=== PATIENT | male | born 1940 | race Caucasian/White ===

== ENCOUNTER 2021-11-04 07:53 | Inpatient (IN) | payer MEDICARE, MEDICAID ==
[~2021-11-04] VITALS: Ht 185.4 cm; Wt 68.9 kg
[2021-11-04 09:30] VITALS: BP 104/69
[2021-11-04] MEDS ORDERED: magnesium 2GM in 50ml NS 50 ML IV PRN (10:45)
[2021-11-04] MEDS ORDERED: potassium CL 10mEq/100ml bag 100 ML IV PRN (10:45)
[2021-11-04] MEDS ORDERED: morphine 2 MG/ML inj. syringe IV PRN (10:45)
[2021-11-04] MEDS ORDERED: magnesium 4gm in 100ml NS 100 ML IV PRN (10:45)
[2021-11-04] MEDS ORDERED: potassium Cl 20 mEq SR tablet PO PRN (10:45)
[2021-11-04] MEDS ORDERED: mag hydrox/Alum hydrox/simeth 30ml oral suspension PO PRN (10:45)
[2021-11-04] MEDS ORDERED: magnesium hydroxide 30ml (MOM) UD suspension PO PRN (10:45)
[2021-11-04] MEDS ORDERED: ondansetron/PF 4mg/2ml inj IV PRN (10:45)
[2021-11-04] MEDS ORDERED: magnesium Cl slow-release 64mg tablet PO PRN (10:45)
[2021-11-04] MEDS ORDERED: acetaminophen 325mg tablet PO PRN ×2 (10:45)
[2021-11-04 11:00] VITALS: BP 100/61
[2021-11-04] MEDS: dextrose 5%-1/2 normal saline 1,000 ML IV SCH ×2 (11:15→20:04)
[2021-11-04 12:03] LABS: BASOPHILS # (AUTO) 0.1 X10'3 (0-0.2); BASOPHILS % (AUTO) 0.7 % (0-1); EOSINOPHILS % (AUTO) 0 % (0-6); HEMATOCRIT 41.3 % (42.0-52.0); HEMOGLOBIN 13.7 g/dl (14.0-17.9); LYMPHOCYTES # (AUTO) 0.3 X10'3 (1.1-4.8); LYMPHOCYTES % (AUTO) 1.5 % (21-51); MEAN CORPUSCULAR HEMOGLOBIN 31.4 PG (27.0-31.0); MEAN CORPUSCULAR HGB CONC 33.1 g/dL (33.0-36.5); MEAN CORPUSCULAR VOLUME 94.9 FL (78-98); MEAN PLATELET VOLUME 8.7 FL (7.4-10.4); MONOCYTES # (AUTO) 0.8 X10'3 (0-0.9); NEUTROPHILS # (AUTO) 18.3 X10'3 (1.8-7.7); NEUTROPHILS % (AUTO) 93.8 % (42-75); PLATELET COUNT 165 X10'3 (140-440); RED BLOOD COUNT 4.35 X10'6 (4.70-6.10); RED CELL DISTRIBUTION WIDTH 16.3 % (11.5-14.5); WHITE BLOOD COUNT 19.6 X10'3 (4.5-11.0)
[2021-11-04 12:07] LABS: CLARITY,URINE CLOUDY (Clear); COLOR,URINE YELLOW (Yellow); GLUCOSE, URINE NEGATIVE (Neg); KETONES,URINE NEGATIVE (Neg); LEUKOCYTE ESTERASE ,URINE LARGE (Neg); NITRITES, URINE NEGATIVE (Neg); OCCULT BLOOD,URINE LARGE (Neg); PROTEIN,URINE NEGATIVE (Neg); UROBILINOGEN,URINE 0.2 E.U/dL (0.2-1.0)
[2021-11-04 12:08] LABS: UA COLLECTION TYPE FOLEY CATH
[2021-11-04] MEDS: CefTRIAXone 2gm/D5W 50ml BAG 50 ML IV SCH (12:17)
[2021-11-04 12:20] LABS: BACTERIA,URINE 2+ /HPF (Neg); SQUAMOUS EPITHELIAL CELL,UR FEW /LPF (FEW); WBC CLUMPS,URINE MANY /HPF (NEGATIVE); WBC,URINE TNTC /HPF (0-4)
[2021-11-04 12:28] LABS: ALANINE AMINOTRANSFERASE 45 U/L (12-78); ALBUMIN/GLOBULIN RATIO 0.5 (1.1-1.5); ALKALINE PHOSPHATASE 71 IU/L (46-116); ANION GAP 13 (8-16); ASPARTATE AMINO TRANSFERASE 32 U/L (10-37); BILIRUBIN,TOTAL 1.3 MG/DL (0.1-1.0); BLOOD UREA NITROGEN 96 MG/DL (7-18); BUN/CREATININE RATIO 34.5 (5.4-32.0); CHLORIDE 122 MMOL/L (99-107); CREATININE 2.78 MG/DL (0.60-1.10); GLUCOSE 107 MG/DL (70-104); POTASSIUM 3.7 MMOL/L (3.5-5.1); TOTAL CARBON DIOXIDE 22.5 MMOL/L (24-32); eGFR 22 ML/MIN
[2021-11-04 12:46] LABS: SODIUM 157 MMOL/L (135-145)
--- NOTE | 2021-11-04 12:50 | NUR ---
PAGER ID: [phone] MESSAGE: [id number] ANA. [phone], TIFFANY DARLING
[2021-11-04] MEDS ORDERED: UNABLE TO OBTAIN (13:37)
[2021-11-04 15:00] VITALS: BP 128/64
--- NOTE | 2021-11-04 15:19 | NUR ---
PAGER ID: [phone] MESSAGE: [id number] Dean Soni- Patient had large watery bowel movement. Nga [id number]
--- NOTE | 2021-11-04 17:41 | NUR ---
Vik Soni called. States he doesn't know any of his medical history besides his chronic finn catheter. He doesn't believe he is on any medications.
--- NOTE | 2021-11-04 18:38 | NUR ---
Problems reprioritized. Patient report given, questions answered & plan of care reviewed with Mildred CARSON.
[2021-11-04] MEDS: K and/or MAG REPLACEMENT MC SCH (19:58)
[2021-11-04 20:00] VITALS: BP 93/60
[2021-11-04] MEDS: docusate sod 100mg capsule PO SCH (20:04)
[2021-11-04] MEDS: heparin, porcine 5000 units/ml vial SQ SCH (20:04)
[2021-11-04] MEDS: vancomycin 125mg/5ml ORAL solution 5ml UD oral syringe PO SCH (20:04)
[2021-11-04 23:00] VITALS: BP 103/52
[2021-11-05] MEDS: vancomycin 125mg/5ml ORAL solution 5ml UD oral syringe PO SCH ×2 (02:23→09:30)
[2021-11-05 03:00] VITALS: BP 98/65
[2021-11-05] MEDS: dextrose 5%-1/2 normal saline 1,000 ML IV SCH ×4 (05:03→23:07)
[2021-11-05 06:00] VITALS: BP 94/49
[2021-11-05 07:14] LABS: MEAN PLATELET VOLUME 9.1 FL (7.4-10.4)
[2021-11-05 07:16] LABS: HEMATOCRIT 41.5 % (42.0-52.0); HEMOGLOBIN 13.9 g/dl (14.0-17.9); MEAN CORPUSCULAR HGB CONC 33.5 g/dL (33.0-36.5); MEAN CORPUSCULAR VOLUME 95.7 FL (78-98); PLATELET COUNT 158 X10'3 (140-440); RED BLOOD COUNT 4.34 X10'6 (4.70-6.10); RED CELL DISTRIBUTION WIDTH 16.1 % (11.5-14.5); WHITE BLOOD COUNT 22.5 X10'3 (4.5-11.0)
[2021-11-05 07:22] LABS: ALANINE AMINOTRANSFERASE 36 U/L (12-78); ALBUMIN/GLOBULIN RATIO 0.5 (1.1-1.5); ALKALINE PHOSPHATASE 78 IU/L (46-116); ANION GAP 11 (8-16); ASPARTATE AMINO TRANSFERASE 24 U/L (10-37); BLOOD UREA NITROGEN 72 MG/DL (7-18); BUN/CREATININE RATIO 29.6 (5.4-32.0); CALCIUM 7.9 MG/DL (8.5-10.1); CHLORIDE 117 MMOL/L (99-107); CREATININE 2.43 MG/DL (0.60-1.10); GLUCOSE 91 MG/DL (70-104); POTASSIUM 3.3 MMOL/L (3.5-5.1); SODIUM 151 MMOL/L (135-145); TOTAL CARBON DIOXIDE 23.5 MMOL/L (24-32); TOTAL PROTEIN 6.2 G/DL (6.4-8.2); eGFR 26 ML/MIN
[2021-11-05 07:57] LABS: PLATELET ESTIMATE NORMAL; TOTAL CELLS COUNTED 100
[2021-11-05 07:58] LABS: ANISOCYTOSIS 1+
[2021-11-05] MEDS: docusate sod 100mg capsule PO SCH (08:00)
[2021-11-05] MEDS: K and/or MAG REPLACEMENT MC SCH ×2 (08:00→20:57)
[2021-11-05] MEDS: heparin, porcine 5000 units/ml vial SQ SCH ×2 (08:41→21:04)
[2021-11-05] MEDS: CefTRIAXone 2gm/D5W 50ml BAG 50 ML IV SCH (08:41)
[2021-11-05] MEDS: levoTHYROXINE 100mcg tablet PO SCH (08:41)
[2021-11-05] MEDS: potassium Cl 20 mEq SR tablet PO PRN ×2 (08:50→13:55)
[2021-11-05 10:09] LABS: C DIFF SPECIMEN=DIARRHEA? ACCEPTABLE; C DIFFICILE TOXINS A&B NEGATIVE (Neg)
[2021-11-05 11:00] VITALS: BP 91/47
--- NOTE | 2021-11-05 12:48 | NUR ---
PAGER ID: [phone] MESSAGE: [id number] Dean Soni- BP (MAP 58). Nga [id number]
[2021-11-05] MEDS: vancomycin inj 500 MG in normal saline 100ml IV soln 100 ML IV SCH (13:50)
[2021-11-05 15:00] VITALS: BP 107/44
[2021-11-05 16:29] LABS: BASOPHILS % (AUTO) 0.2 % (0-1); EOSINOPHILS % (AUTO) 0.1 % (0-6); HEMATOCRIT 41.5 % (42.0-52.0); HEMOGLOBIN 13.4 g/dl (14.0-17.9); LYMPHOCYTES # (AUTO) 0.7 X10'3 (1.1-4.8); LYMPHOCYTES % (AUTO) 3.2 % (21-51); MEAN CORPUSCULAR HEMOGLOBIN 31.4 PG (27.0-31.0); MEAN CORPUSCULAR HGB CONC 32.4 g/dL (33.0-36.5); MEAN CORPUSCULAR VOLUME 96.7 FL (78-98); MEAN PLATELET VOLUME 9.2 FL (7.4-10.4); MONOCYTES # (AUTO) 0.8 X10'3 (0-0.9); MONOCYTES % (AUTO) 3.5 % (2-12); NEUTROPHILS # (AUTO) 20.3 X10'3 (1.8-7.7); PLATELET COUNT 124 X10'3 (140-440); RED BLOOD COUNT 4.29 X10'6 (4.70-6.10); RED CELL DISTRIBUTION WIDTH 16.2 % (11.5-14.5); WHITE BLOOD COUNT 21.8 X10'3 (4.5-11.0)
--- NOTE | 2021-11-05 17:59 | NUR ---
Initial: Pt found down at home without power and water admit DX sepsis likely urinary source, INEZ, hypernatremia, and AMS per EMR. Serum Na 151mmol/L down from 157mmol/L on admit receiving D5/NS at 125ml/hr providing 510 kcals/day per EMR. Pt remains confused AOx1 though PO 75-100% majority of heart healthy meals so far this admit meeting minimum estimated nutrient needs. LBM 11/04 diarrhea per EMR. Will continue to monitor for further nutrition intervention needs this admit. Rec: 1. continue heart healthy diet per MD; consider liberalizing to regular once hypernatremia resolves given age per physician discretion 2. monitor PO trends for additional protein/kcal needs 3. bowel care per rx 4. weekly wts Addendum: 11/05/21 at [address] Amended: Links added.
[2021-11-05 18:00] VITALS: BP 103/56
--- NOTE | 2021-11-05 18:38 | NUR ---
Problems reprioritized. Patient report given, questions answered & plan of care reviewed with Tracie CARSON.
[2021-11-05] MEDS: lactobacillus rhamnosus 10,000 MMU CELLS/CAPSULE PO SCH (20:00)
[2021-11-05 22:00] VITALS: BP 110/61
[2021-11-06 02:00] VITALS: BP 127/67
[2021-11-06 06:00] VITALS: BP 124/64
--- NOTE | 2021-11-06 06:29 | NUR ---
Problems reprioritized. Patient report given, questions answered & plan of care reviewed with Valorie.
--- NOTE | 2021-11-06 06:30 | NUR ---
Patient in room PCU 3023. I have received report from Tracie CARSON and had the opportunity to ask questions and assume patient care.
[2021-11-06 06:57] LABS: BASOPHILS % (AUTO) 0.1 % (0-1); EOSINOPHILS # (AUTO) 0.1 X10'3 (0-0.9); EOSINOPHILS % (AUTO) 0.7 % (0-6); HEMATOCRIT 39.3 % (42.0-52.0); HEMOGLOBIN 12.9 g/dl (14.0-17.9); LYMPHOCYTES # (AUTO) 0.6 X10'3 (1.1-4.8); MEAN CORPUSCULAR HEMOGLOBIN 31.3 PG (27.0-31.0); MEAN CORPUSCULAR HGB CONC 32.8 g/dL (33.0-36.5); MEAN CORPUSCULAR VOLUME 95.5 FL (78-98); MEAN PLATELET VOLUME 9.2 FL (7.4-10.4); MONOCYTES # (AUTO) 0.5 X10'3 (0-0.9); MONOCYTES % (AUTO) 3.2 % (2-12); NEUTROPHILS # (AUTO) 14.1 X10'3 (1.8-7.7); PLATELET COUNT 151 X10'3 (140-440); RED BLOOD COUNT 4.12 X10'6 (4.70-6.10); WHITE BLOOD COUNT 15.3 X10'3 (4.5-11.0)
[2021-11-06 07:27] LABS: ALANINE AMINOTRANSFERASE 23 U/L (12-78); ALBUMIN 1.8 G/DL (3.4-5.0); ALBUMIN/GLOBULIN RATIO 0.5 (1.1-1.5); ALKALINE PHOSPHATASE 64 IU/L (46-116); ANION GAP 8 (8-16); ASPARTATE AMINO TRANSFERASE 19 U/L (10-37); BILIRUBIN,TOTAL 0.6 MG/DL (0.1-1.0); BLOOD UREA NITROGEN 51 MG/DL (7-18); BUN/CREATININE RATIO 27.1 (5.4-32.0); CALCIUM 7.8 MG/DL (8.5-10.1); CHLORIDE 116 MMOL/L (99-107); CREATININE 1.88 MG/DL (0.60-1.10); GLUCOSE 118 MG/DL (70-104); POTASSIUM 3.6 MMOL/L (3.5-5.1); SODIUM 148 MMOL/L (135-145); TOTAL CARBON DIOXIDE 24.3 MMOL/L (24-32); TOTAL PROTEIN 5.7 G/DL (6.4-8.2); eGFR 35 ML/MIN
[2021-11-06] MEDS: K and/or MAG REPLACEMENT MC SCH ×2 (08:00→20:00)
[2021-11-06] MEDS: CefTRIAXone 2gm/D5W 50ml BAG 50 ML IV SCH (09:51)
[2021-11-06] MEDS: levoTHYROXINE 100mcg tablet PO SCH (09:52)
[2021-11-06] MEDS: lactobacillus rhamnosus 10,000 MMU CELLS/CAPSULE PO SCH ×2 (09:52→20:17)
[2021-11-06] MEDS: heparin, porcine 5000 units/ml vial SQ SCH ×2 (09:53→20:16)
[2021-11-06] MEDS: dextrose 5%-1/2 normal saline 1,000 ML IV SCH ×2 (09:53→20:14)
[2021-11-06 11:00] VITALS: BP 115/57
[2021-11-06] MEDS: vancomycin inj 500 MG in normal saline 100ml IV soln 100 ML IV SCH (13:23)
[2021-11-06 15:00] VITALS: BP 113/57
[2021-11-06 18:00] VITALS: BP 124/60
--- NOTE | 2021-11-06 18:41 | NUR ---
Problems reprioritized. Patient report given, questions answered & plan of care reviewed with Tracie RN, patient stable at transfer of care.
[2021-11-07 02:00] VITALS: BP 122/65
[2021-11-07] MEDS: dextrose 5%-1/2 normal saline 1,000 ML IV SCH ×3 (03:34→19:48)
[2021-11-07 06:00] VITALS: BP 130/69
--- NOTE | 2021-11-07 06:44 | NUR ---
Problems reprioritized. Patient report given, questions answered & plan of care reviewed with Chadd.
[2021-11-07 07:09] LABS: BASOPHILS % (AUTO) 0.1 % (0-1); EOSINOPHILS # (AUTO) 0.1 X10'3 (0-0.9); EOSINOPHILS % (AUTO) 0.9 % (0-6); HEMATOCRIT 35.9 % (42.0-52.0); LYMPHOCYTES # (AUTO) 0.8 X10'3 (1.1-4.8); LYMPHOCYTES % (AUTO) 6.3 % (21-51); MEAN CORPUSCULAR HEMOGLOBIN 31.7 PG (27.0-31.0); MEAN CORPUSCULAR HGB CONC 33.6 g/dL (33.0-36.5); MEAN CORPUSCULAR VOLUME 94.5 FL (78-98); MEAN PLATELET VOLUME 8.8 FL (7.4-10.4); MONOCYTES # (AUTO) 0.5 X10'3 (0-0.9); MONOCYTES % (AUTO) 3.7 % (2-12); NEUTROPHILS # (AUTO) 11.5 X10'3 (1.8-7.7); PLATELET COUNT 173 X10'3 (140-440); RED BLOOD COUNT 3.79 X10'6 (4.70-6.10); RED CELL DISTRIBUTION WIDTH 15.3 % (11.5-14.5)
[2021-11-07 07:28] LABS: ALANINE AMINOTRANSFERASE 24 U/L (12-78); ALBUMIN 1.7 G/DL (3.4-5.0); ALBUMIN/GLOBULIN RATIO 0.4 (1.1-1.5); ALKALINE PHOSPHATASE 68 IU/L (46-116); ANION GAP 10 (8-16); ASPARTATE AMINO TRANSFERASE 25 U/L (10-37); BILIRUBIN,TOTAL 0.5 MG/DL (0.1-1.0); BLOOD UREA NITROGEN 34 MG/DL (7-18); BUN/CREATININE RATIO 21.7 (5.4-32.0); CALCIUM 7.7 MG/DL (8.5-10.1); CHLORIDE 114 MMOL/L (99-107); CREATININE 1.57 MG/DL (0.60-1.10); GLUCOSE 114 MG/DL (70-104); POTASSIUM 3.4 MMOL/L (3.5-5.1); SODIUM 146 MMOL/L (135-145); TOTAL CARBON DIOXIDE 21.9 MMOL/L (24-32); TOTAL PROTEIN 5.6 G/DL (6.4-8.2); eGFR 43 ML/MIN
[2021-11-07] MEDS: K and/or MAG REPLACEMENT MC SCH ×2 (08:00→20:00)
[2021-11-07] MEDS: levoTHYROXINE 100mcg tablet PO SCH (08:35)
[2021-11-07] MEDS: lactobacillus rhamnosus 10,000 MMU CELLS/CAPSULE PO SCH ×2 (08:35→19:26)
[2021-11-07] MEDS: CefTRIAXone 2gm/D5W 50ml BAG 50 ML IV SCH (08:36)
[2021-11-07] MEDS: heparin, porcine 5000 units/ml vial SQ SCH ×2 (08:38→19:26)
[2021-11-07 09:27] LABS: PLATELET ESTIMATE NORMAL; TOTAL CELLS COUNTED 100; TOXIC GRANULATION 1+
[2021-11-07] MEDS: potassium Cl 20 mEq SR tablet PO PRN (09:27)
[2021-11-07 09:29] LABS: ANISOCYTOSIS FEW; ELLIPTOCYTES FEW; POLYCHROMASIA FEW
[2021-11-07 11:00] VITALS: BP 132/67
[2021-11-07 15:00] VITALS: BP 117/64
[2021-11-07] MEDS: vancomycin inj 500 MG in normal saline 100ml IV soln 100 ML IV SCH (16:18)
[2021-11-07] MEDS: potassium Cl 20 mEq SR tablet PO SCH ×2 (16:18→19:26)
[2021-11-07 18:00] VITALS: BP 131/70
[2021-11-07] MEDS: HYDROcodone/acetaminophen 5mg/325mg tablet PO PRN (19:26)
[2021-11-07 22:00] VITALS: BP 115/58
[2021-11-08 02:00] VITALS: BP 121/63
[2021-11-08] MEDS: dextrose 5%-1/2 normal saline 1,000 ML IV SCH ×2 (05:49→15:48)
[2021-11-08 06:00] VITALS: BP 131/62
[2021-11-08 06:19] LABS: BASOPHILS % (AUTO) 0.1 % (0-1); EOSINOPHILS # (AUTO) 0.1 X10'3 (0-0.9); EOSINOPHILS % (AUTO) 1.1 % (0-6); HEMATOCRIT 36.4 % (42.0-52.0); HEMOGLOBIN 12.1 g/dl (14.0-17.9); LYMPHOCYTES # (AUTO) 0.7 X10'3 (1.1-4.8); LYMPHOCYTES % (AUTO) 5.3 % (21-51); MEAN CORPUSCULAR HEMOGLOBIN 31.7 PG (27.0-31.0); MEAN CORPUSCULAR HGB CONC 33.1 g/dL (33.0-36.5); MEAN CORPUSCULAR VOLUME 95.9 FL (78-98); MONOCYTES # (AUTO) 0.7 X10'3 (0-0.9); MONOCYTES % (AUTO) 5.1 % (2-12); NEUTROPHILS # (AUTO) 12.1 X10'3 (1.8-7.7); NEUTROPHILS % (AUTO) 88.4 % (42-75); PLATELET COUNT 195 X10'3 (140-440); RED CELL DISTRIBUTION WIDTH 15.2 % (11.5-14.5); WHITE BLOOD COUNT 13.7 X10'3 (4.5-11.0)
[2021-11-08 06:36] LABS: ALANINE AMINOTRANSFERASE 45 U/L (12-78); ALBUMIN 1.7 G/DL (3.4-5.0); ALBUMIN/GLOBULIN RATIO 0.4 (1.1-1.5); ALKALINE PHOSPHATASE 75 IU/L (46-116); ANION GAP 9 (8-16); ASPARTATE AMINO TRANSFERASE 46 U/L (10-37); BILIRUBIN,TOTAL 0.5 MG/DL (0.1-1.0); BLOOD UREA NITROGEN 32 MG/DL (7-18); BUN/CREATININE RATIO 20.4 (5.4-32.0); CALCIUM 7.6 MG/DL (8.5-10.1); CHLORIDE 112 MMOL/L (99-107); CREATININE 1.57 MG/DL (0.60-1.10); GLUCOSE 99 MG/DL (70-104); POTASSIUM 3.9 MMOL/L (3.5-5.1); SODIUM 144 MMOL/L (135-145); TOTAL CARBON DIOXIDE 23.1 MMOL/L (24-32); TOTAL PROTEIN 5.6 G/DL (6.4-8.2); eGFR 43 ML/MIN
--- NOTE | 2021-11-08 07:11 | NUR ---
Problems reprioritized. Patient report given, questions answered & plan of care reviewed with Yuniel CARSON .
[2021-11-08] MEDS: K and/or MAG REPLACEMENT MC SCH ×2 (08:00→19:43)
[2021-11-08] MEDS: lactobacillus rhamnosus 10,000 MMU CELLS/CAPSULE PO SCH ×2 (09:18→21:25)
[2021-11-08] MEDS: levoTHYROXINE 125mcg tablet PO SCH (09:18)
[2021-11-08] MEDS: CefTRIAXone 2gm/D5W 50ml BAG 50 ML IV SCH (09:19)
[2021-11-08] MEDS: heparin, porcine 5000 units/ml vial SQ SCH ×2 (09:19→21:26)
[2021-11-08 09:55] LABS: TOTAL CELLS COUNTED 100
[2021-11-08 09:56] LABS: ANISOCYTOSIS FEW; ELLIPTOCYTES FEW; HYPERSEGMENTED NEUTROPHILS FEW; LARGE PLATELETS FEW; PLATELET ESTIMATE NORMAL; POLYCHROMASIA FEW; TOXIC GRANULATION 1+
[2021-11-08 11:00] VITALS: BP 128/76
[2021-11-08] MEDS ORDERED: VANCOMYCIN LEVEL IV ONE (12:30)
[2021-11-08 15:00] VITALS: BP 115/56
[2021-11-08 18:00] VITALS: BP 129/73
--- NOTE | 2021-11-08 23:22 | NUR ---
Delarosa catheter d/c'd today at 1500. Pt has not voided up to this time. Stood up at the bedside and encouraged him to use the urinal with no results. Bladder scan shows > 437ml. Dr. Vásquez notified, orders given to straight cath Addendum: 11/09/21 at 0043 by Cherelle Ruffin RN Straight cath with 1100 ml urine return Addendum: 11/09/21 at 0508 by Cherelle Ruffin RN No further voiding up to this time. He did report mild suprapubic tenderness on rounds at 0400 (states he has an old hernia in that area). Currently he is resting. IV fluids reduced to KVO until can verify with MD in the am if to continue the rate at 100ml/hr if not voiding.
[2021-11-08] MEDS ORDERED: LIDOcaine 2% 10ml TOPICAL JELLY (Urojet) MM ONE (23:45)
[2021-11-09] MEDS: dextrose 5%-1/2 normal saline 1,000 ML IV SCH ×3 (01:48→21:09)
[2021-11-09 02:00] VITALS: BP 125/74
--- NOTE | 2021-11-09 06:29 | NUR ---
Patient in room PCU 3023. I have received report from Cherelle CARSON and had the opportunity to ask questions and assume patient care.
--- NOTE | 2021-11-09 06:33 | NUR ---
Change of shift report given to YAMILETH Willis Addendum: 11/09/21 at 0633 by Cherelle Ruffin RN Amended: Links added.
[2021-11-09 06:49] LABS: BASOPHILS % (AUTO) 0.1 % (0-1); EOSINOPHILS # (AUTO) 0.1 X10'3 (0-0.9); EOSINOPHILS % (AUTO) 0.2 % (0-6); HEMATOCRIT 38.2 % (42.0-52.0); HEMOGLOBIN 12.7 g/dl (14.0-17.9); LYMPHOCYTES # (AUTO) 0.8 X10'3 (1.1-4.8); LYMPHOCYTES % (AUTO) 3.1 % (21-51); MEAN CORPUSCULAR HEMOGLOBIN 31.5 PG (27.0-31.0); MEAN CORPUSCULAR HGB CONC 33.2 g/dL (33.0-36.5); MEAN CORPUSCULAR VOLUME 94.8 FL (78-98); MONOCYTES # (AUTO) 0.9 X10'3 (0-0.9); MONOCYTES % (AUTO) 3.4 % (2-12); NEUTROPHILS # (AUTO) 25.1 X10'3 (1.8-7.7); NEUTROPHILS % (AUTO) 93.2 % (42-75); PLATELET COUNT 218 X10'3 (140-440); RED BLOOD COUNT 4.03 X10'6 (4.70-6.10); RED CELL DISTRIBUTION WIDTH 15.3 % (11.5-14.5)
[2021-11-09 07:01] VITALS: BP 88/64
[2021-11-09 07:13] LABS: ALANINE AMINOTRANSFERASE 53 U/L (12-78); ALBUMIN 1.8 G/DL (3.4-5.0); ALBUMIN/GLOBULIN RATIO 0.5 (1.1-1.5); ALKALINE PHOSPHATASE 70 IU/L (46-116); ANION GAP 9 (8-16); ASPARTATE AMINO TRANSFERASE 40 U/L (10-37); BILIRUBIN,TOTAL 0.7 MG/DL (0.1-1.0); BLOOD UREA NITROGEN 36 MG/DL (7-18); BUN/CREATININE RATIO 14.7 (5.4-32.0); CALCIUM 7.8 MG/DL (8.5-10.1); CHLORIDE 112 MMOL/L (99-107); CREATININE 2.45 MG/DL (0.60-1.10); GLUCOSE 101 MG/DL (70-104); POTASSIUM 3.9 MMOL/L (3.5-5.1); SODIUM 141 MMOL/L (135-145); TOTAL CARBON DIOXIDE 19.8 MMOL/L (24-32); TOTAL PROTEIN 5.8 G/DL (6.4-8.2); eGFR 25 ML/MIN
--- NOTE | 2021-11-09 07:15 | NUR ---
PAGER ID: [phone] MESSAGE: Lazaro tele [id number] re: Rafa Soni Patient has a critical WBC today of 27k thanks Lazaro.
[2021-11-09] MEDS: lactobacillus rhamnosus 10,000 MMU CELLS/CAPSULE PO SCH ×2 (07:41→21:08)
[2021-11-09] MEDS: levoTHYROXINE 125mcg tablet PO SCH (07:41)
[2021-11-09] MEDS: CefTRIAXone 2gm/D5W 50ml BAG 50 ML IV SCH (07:41)
[2021-11-09] MEDS: heparin, porcine 5000 units/ml vial SQ SCH ×2 (07:49→21:08)
[2021-11-09] MEDS: K and/or MAG REPLACEMENT MC SCH ×2 (08:00→20:00)
[2021-11-09 08:27] LABS: PLATELET ESTIMATE NORMAL; TOTAL CELLS COUNTED 100
[2021-11-09 10:12] LABS: BASOPHILS % (AUTO) 0.1 % (0-1); EOSINOPHILS % (AUTO) 0.1 % (0-6); HEMATOCRIT 37.6 % (42.0-52.0); HEMOGLOBIN 12.4 g/dl (14.0-17.9); LYMPHOCYTES # (AUTO) 0.7 X10'3 (1.1-4.8); LYMPHOCYTES % (AUTO) 2.6 % (21-51); MEAN CORPUSCULAR HEMOGLOBIN 31.2 PG (27.0-31.0); MEAN CORPUSCULAR HGB CONC 33.1 g/dL (33.0-36.5); MEAN CORPUSCULAR VOLUME 94.5 FL (78-98); MEAN PLATELET VOLUME 9.2 FL (7.4-10.4); MONOCYTES # (AUTO) 1.2 X10'3 (0-0.9); MONOCYTES % (AUTO) 4.6 % (2-12); NEUTROPHILS # (AUTO) 24.6 X10'3 (1.8-7.7); NEUTROPHILS % (AUTO) 92.6 % (42-75); PLATELET COUNT 214 X10'3 (140-440); RED BLOOD COUNT 3.98 X10'6 (4.70-6.10); RED CELL DISTRIBUTION WIDTH 15.3 % (11.5-14.5)
[2021-11-09 10:20] LABS: WHITE BLOOD COUNT 26.6 X10'3 (4.5-11.0)
[2021-11-09] MEDS ORDERED: LIDOcaine 2% 10ml TOPICAL JELLY (Urojet) TP ONE (10:45)
[2021-11-09 11:34] VITALS: BP 105/55
--- NOTE | 2021-11-09 11:42 | NUR ---
Reassessment: Pt continues on Heart healthy diet w/ mostly 100% intake of meals meeting needs. Pt remains A&O x 1 and confused per physical assessment and requires minimal assistance w/ meals at times. Pt also receiving D5 1/2NS at 100ml/hr providing additional 408kcals per day. LBM 1/2. No change to recommendations at this time. [facility] continue to [facility]. Rec: 1. Liberalize to Regular diet if MD agreeable given no significant cardiac hx in EMR 2. monitor PO trends for additional protein/kcal needs 3. bowel care per rx 4. weekly wts Addendum: 11/09/21 at [address] Amended: Links added.
[2021-11-09 16:18] VITALS: BP 98/61
[2021-11-09 18:00] VITALS: BP 91/56
--- NOTE | 2021-11-09 18:23 | NUR ---
Problems reprioritized. Patient report given, questions answered & plan of care reviewed with Cherelle RN.
[2021-11-09] MEDS: tamsulosin 0.4mg capsule PO SCH (21:08)
[2021-11-09 22:00] VITALS: BP 101/56
[2021-11-10 02:00] VITALS: BP 107/56
--- NOTE | 2021-11-10 06:40 | NUR ---
Change of shift report given to YAMILETH Brewer Addendum: 11/10/21 at 0640 by Cherelle Ruffin RN Amended: Links added.
--- NOTE | 2021-11-10 06:46 | NUR ---
Patient in room PCU 3023. I have received report from MEME CARSON and had the opportunity to ask questions and assume patient care.
[2021-11-10 07:00] VITALS: BP 110/57
[2021-11-10 07:06] LABS: BASOPHILS % (AUTO) 0.2 % (0-1); EOSINOPHILS # (AUTO) 0.1 X10'3 (0-0.9); EOSINOPHILS % (AUTO) 0.6 % (0-6); HEMATOCRIT 33.2 % (42.0-52.0); HEMOGLOBIN 11.1 g/dl (14.0-17.9); LYMPHOCYTES # (AUTO) 0.8 X10'3 (1.1-4.8); LYMPHOCYTES % (AUTO) 4.7 % (21-51); MEAN CORPUSCULAR HEMOGLOBIN 31.7 PG (27.0-31.0); MEAN CORPUSCULAR HGB CONC 33.4 g/dL (33.0-36.5); MEAN PLATELET VOLUME 9.1 FL (7.4-10.4); MONOCYTES # (AUTO) 1.3 X10'3 (0-0.9); MONOCYTES % (AUTO) 7.5 % (2-12); NEUTROPHILS # (AUTO) 14.8 X10'3 (1.8-7.7); PLATELET COUNT 212 X10'3 (140-440); RED BLOOD COUNT 3.49 X10'6 (4.70-6.10); RED CELL DISTRIBUTION WIDTH 15.3 % (11.5-14.5)
[2021-11-10 07:35] LABS: ALANINE AMINOTRANSFERASE 39 U/L (12-78); ALBUMIN 1.6 G/DL (3.4-5.0); ALBUMIN/GLOBULIN RATIO 0.4 (1.1-1.5); ALKALINE PHOSPHATASE 70 IU/L (46-116); ANION GAP 10 (8-16); ASPARTATE AMINO TRANSFERASE 25 U/L (10-37); BILIRUBIN,TOTAL 0.5 MG/DL (0.1-1.0); BLOOD UREA NITROGEN 30 MG/DL (7-18); BUN/CREATININE RATIO 16.2 (5.4-32.0); CALCIUM 7.8 MG/DL (8.5-10.1); CHLORIDE 113 MMOL/L (99-107); CREATININE 1.85 MG/DL (0.60-1.10); GLUCOSE 92 MG/DL (70-104); POTASSIUM 3.7 MMOL/L (3.5-5.1); SODIUM 145 MMOL/L (135-145); TOTAL CARBON DIOXIDE 21.7 MMOL/L (24-32); TOTAL PROTEIN 5.7 G/DL (6.4-8.2); eGFR 35 ML/MIN
[2021-11-10] MEDS: dextrose 5%-1/2 normal saline 1,000 ML IV SCH ×2 (07:48→17:56)
[2021-11-10] MEDS: K and/or MAG REPLACEMENT MC SCH ×2 (08:00→20:00)
[2021-11-10 08:42] LABS: GIANT PLATELET FEW; PLATELET ESTIMATE NORMAL; TOTAL CELLS COUNTED 100
[2021-11-10] MEDS: CefTRIAXone 2gm/D5W 50ml BAG 50 ML IV SCH (09:04)
[2021-11-10] MEDS: levoTHYROXINE 125mcg tablet PO SCH (09:04)
[2021-11-10] MEDS: lactobacillus rhamnosus 10,000 MMU CELLS/CAPSULE PO SCH ×2 (09:04→20:09)
[2021-11-10] MEDS: heparin, porcine 5000 units/ml vial SQ SCH ×2 (09:05→20:10)
[2021-11-10 11:00] VITALS: BP 107/56
[2021-11-10 15:00] VITALS: BP 113/85
[2021-11-10 18:00] VITALS: BP 119/63
--- NOTE | 2021-11-10 18:41 | NUR ---
Problems reprioritized. Patient report given, questions answered & plan of care reviewed with REBEL CARSON.
--- NOTE | 2021-11-10 18:41 | NUR ---
Patient in room PCU 3023. I have received report from Daniella CARSON and had the opportunity to ask questions and assume patient care.
[2021-11-10] MEDS: tamsulosin 0.4mg capsule PO SCH (20:10)
[2021-11-10 22:00] VITALS: BP 107/57
[2021-11-11 02:00] VITALS: BP 108/70
[2021-11-11] MEDS: dextrose 5%-1/2 normal saline 1,000 ML IV SCH ×2 (04:56→14:36)
--- NOTE | 2021-11-11 06:43 | NUR ---
Problems reprioritized. Patient report given, questions answered & plan of care reviewed with Lynn CARSON.
[2021-11-11 06:44] LABS: BASOPHILS % (AUTO) 0.2 % (0-1); EOSINOPHILS # (AUTO) 0.1 X10'3 (0-0.9); HEMATOCRIT 32.7 % (42.0-52.0); HEMOGLOBIN 10.9 g/dl (14.0-17.9); LYMPHOCYTES # (AUTO) 0.9 X10'3 (1.1-4.8); LYMPHOCYTES % (AUTO) 6.7 % (21-51); MEAN CORPUSCULAR HEMOGLOBIN 31.6 PG (27.0-31.0); MEAN CORPUSCULAR HGB CONC 33.5 g/dL (33.0-36.5); MEAN CORPUSCULAR VOLUME 94.3 FL (78-98); MEAN PLATELET VOLUME 9.1 FL (7.4-10.4); MONOCYTES # (AUTO) 1.1 X10'3 (0-0.9); MONOCYTES % (AUTO) 7.8 % (2-12); NEUTROPHILS # (AUTO) 11.4 X10'3 (1.8-7.7); NEUTROPHILS % (AUTO) 84.3 % (42-75); PLATELET COUNT 261 X10'3 (140-440); RED BLOOD COUNT 3.46 X10'6 (4.70-6.10); RED CELL DISTRIBUTION WIDTH 15.4 % (11.5-14.5); WHITE BLOOD COUNT 13.5 X10'3 (4.5-11.0)
[2021-11-11 06:55] VITALS: BP 115/74
[2021-11-11 07:13] LABS: ALANINE AMINOTRANSFERASE 38 U/L (12-78); ALBUMIN 1.7 G/DL (3.4-5.0); ALBUMIN/GLOBULIN RATIO 0.4 (1.1-1.5); ALKALINE PHOSPHATASE 72 IU/L (46-116); ANION GAP 8 (8-16); ASPARTATE AMINO TRANSFERASE 26 U/L (10-37); BILIRUBIN,TOTAL 0.4 MG/DL (0.1-1.0); BLOOD UREA NITROGEN 26 MG/DL (7-18); BUN/CREATININE RATIO 16.6 (5.4-32.0); CALCIUM 7.7 MG/DL (8.5-10.1); CHLORIDE 111 MMOL/L (99-107); CREATININE 1.57 MG/DL (0.60-1.10); GLUCOSE 94 MG/DL (70-104); POTASSIUM 3.4 MMOL/L (3.5-5.1); SODIUM 142 MMOL/L (135-145); TOTAL CARBON DIOXIDE 22.7 MMOL/L (24-32); TOTAL PROTEIN 5.8 G/DL (6.4-8.2); eGFR 43 ML/MIN
[2021-11-11] MEDS: K and/or MAG REPLACEMENT MC SCH ×3 (08:00→20:00)
[2021-11-11] MEDS: lactobacillus rhamnosus 10,000 MMU CELLS/CAPSULE PO SCH ×2 (08:17→20:06)
[2021-11-11] MEDS: levoTHYROXINE 125mcg tablet PO SCH (08:18)
[2021-11-11] MEDS: CefTRIAXone 2gm/D5W 50ml BAG 50 ML IV SCH (08:18)
[2021-11-11] MEDS: heparin, porcine 5000 units/ml vial SQ SCH ×2 (08:18→20:06)
[2021-11-11 10:48] VITALS: BP 103/56
[2021-11-11] MEDS ORDERED: magnesium 2GM in 50ml NS 50 ML IV PRN (11:05)
[2021-11-11] MEDS ORDERED: potassium CL 10mEq/100ml bag 100 ML IV PRN (11:05)
[2021-11-11] MEDS ORDERED: magnesium Cl slow-release 64mg tablet PO PRN (11:05)
[2021-11-11] MEDS ORDERED: magnesium 4gm in 100ml NS 100 ML IV PRN (11:05)
[2021-11-11] MEDS ORDERED: potassium Cl 20 mEq SR tablet PO PRN (11:05)
[2021-11-11] MEDS: potassium Cl 20 mEq SR tablet PO PRN ×3 (12:00→20:06)
[2021-11-11 15:39] VITALS: BP 106/57
--- NOTE | 2021-11-11 16:07 | NUR ---
PATIENT PLEASANTLY CONFUSED, A&O TO SELF AND YEAR. PATIENT MOVES HIMSELF IN BED. PT HAD LG BM THIS AM. [facility] PROVIDED. PATIENT HAS EATEN 100% OF ALL MEALS TODAY. WILL CONTINUE TO MONITOR PATIENT.
[2021-11-11 18:00] VITALS: BP 119/67
--- NOTE | 2021-11-11 18:05 | NUR ---
Problems reprioritized. Patient report given, questions answered & plan of care reviewed with Peyton Mccarty.
--- NOTE | 2021-11-11 18:20 | NUR ---
Patient in room PCU 3023. I have received report from Lynn CARSON and had the opportunity to ask questions and assume patient care.
[2021-11-11] MEDS: tamsulosin 0.4mg capsule PO SCH (20:06)
[2021-11-11 22:00] VITALS: BP 116/62
[2021-11-12] MEDS: dextrose 5%-1/2 normal saline 1,000 ML IV SCH ×3 (00:38→10:58)
[2021-11-12 02:00] VITALS: BP 97/49
--- NOTE | 2021-11-12 05:59 | NUR ---
Problems reprioritized. Patient report given, questions answered & plan of care reviewed with Lynn CARSON.
[2021-11-12 06:00] VITALS: BP 96/55
[2021-11-12 06:26] LABS: EOSINOPHILS # (AUTO) 0.1 X10'3 (0-0.9); HEMOGLOBIN 11.2 g/dl (14.0-17.9); LYMPHOCYTES # (AUTO) 0.9 X10'3 (1.1-4.8)
[2021-11-12 06:29] LABS: BASOPHILS # (AUTO) 0.1 X10'3 (0-0.2); BASOPHILS % (AUTO) 0.6 % (0-1); LYMPHOCYTES % (AUTO) 6.9 % (21-51); MEAN CORPUSCULAR HEMOGLOBIN 31.9 PG (27.0-31.0); MEAN CORPUSCULAR HGB CONC 33.8 g/dL (33.0-36.5); MEAN CORPUSCULAR VOLUME 94.2 FL (78-98); MEAN PLATELET VOLUME 9.3 FL (7.4-10.4); MONOCYTES # (AUTO) 0.9 X10'3 (0-0.9); MONOCYTES % (AUTO) 6.5 % (2-12); NEUTROPHILS # (AUTO) 11.8 X10'3 (1.8-7.7); PLATELET COUNT 227 X10'3 (140-440); RED CELL DISTRIBUTION WIDTH 15.1 % (11.5-14.5); WHITE BLOOD COUNT 13.8 X10'3 (4.5-11.0)
[2021-11-12 07:05] LABS: ALANINE AMINOTRANSFERASE 43 U/L (12-78); ALBUMIN 1.8 G/DL (3.4-5.0); ALBUMIN/GLOBULIN RATIO 0.4 (1.1-1.5); ALKALINE PHOSPHATASE 77 IU/L (46-116); ANION GAP 10 (8-16); ASPARTATE AMINO TRANSFERASE 35 U/L (10-37); BILIRUBIN,TOTAL 0.5 MG/DL (0.1-1.0); BLOOD UREA NITROGEN 22 MG/DL (7-18); BUN/CREATININE RATIO 14.4 (5.4-32.0); CALCIUM 8.2 MG/DL (8.5-10.1); CHLORIDE 111 MMOL/L (99-107); CREATININE 1.53 MG/DL (0.60-1.10); GLUCOSE 108 MG/DL (70-104); MAGNESIUM 1.5 MG/DL (1.5-2.4); POTASSIUM 4.1 MMOL/L (3.5-5.1); SODIUM 142 MMOL/L (135-145); TOTAL CARBON DIOXIDE 20.9 MMOL/L (24-32); TOTAL PROTEIN 6.1 G/DL (6.4-8.2); eGFR 44 ML/MIN
[2021-11-12] MEDS: levoTHYROXINE 125mcg tablet PO SCH (07:23)
[2021-11-12] MEDS: lactobacillus rhamnosus 10,000 MMU CELLS/CAPSULE PO SCH ×2 (07:24→20:32)
[2021-11-12] MEDS: heparin, porcine 5000 units/ml vial SQ SCH ×2 (07:26→20:33)
[2021-11-12] MEDS: CefTRIAXone 2gm/D5W 50ml BAG 50 ML IV SCH (07:26)
[2021-11-12] MEDS: K and/or MAG REPLACEMENT MC SCH ×4 (07:34→20:00)
[2021-11-12 09:18] LABS: PLATELET ESTIMATE NORMAL; TOTAL CELLS COUNTED 100
[2021-11-12 11:21] VITALS: BP 104/59
[2021-11-12 15:00] VITALS: BP 110/55
--- NOTE | 2021-11-12 16:43 | NUR ---
PATIENT HAS BEEN VERY PLEASANT THIS SHIFT. PT HAS REFUSED REPOSITIONING MULTIPLE TIMES BY PRIMARY RN AND TECHS. PT STRONGLY ENCOURAGE TO REPOSITION AND NOT SIT IN SAME SPOT ON BUTTOCKS. PATIENT STATED " I USED TO FALL TIMBER I KNOW WHAT IM DOING". PT HAS EXCELLENT APPETITE, PT HAD MED BM AND 1900 URINE OUTPUT THIS SHIFT. WILL CONTINUE TO MONITOR PATIENT.
[2021-11-12 18:00] VITALS: BP 119/63
--- NOTE | 2021-11-12 18:10 | NUR ---
Problems reprioritized. Patient report given, questions answered & plan of care reviewed with emir field rn.
--- NOTE | 2021-11-12 18:30 | NUR ---
Patient in room PCU 3023. I have received report from KATY CARSON and had the opportunity to ask questions and assume patient care.
[2021-11-12] MEDS: tamsulosin 0.4mg capsule PO SCH (20:32)
[2021-11-12 22:00] VITALS: BP 141/65
[2021-11-13] MEDS: dextrose 5%-1/2 normal saline 1,000 ML IV SCH ×3 (00:48→21:12)
[2021-11-13 02:00] VITALS: BP 95/63
[2021-11-13 06:00] VITALS: BP 128/67
--- NOTE | 2021-11-13 06:06 | NUR ---
Problems reprioritized. Patient report given, questions answered & plan of care reviewed with ALPA CARSON.
[2021-11-13] MEDS: levoTHYROXINE 125mcg tablet PO SCH (07:00)
[2021-11-13] MEDS: K and/or MAG REPLACEMENT MC SCH ×4 (08:00→20:00)
[2021-11-13 08:03] LABS: BASOPHILS # (AUTO) 0.1 X10'3 (0-0.2); BASOPHILS % (AUTO) 0.6 % (0-1); EOSINOPHILS # (AUTO) 0.1 X10'3 (0-0.9); EOSINOPHILS % (AUTO) 0.9 % (0-6); HEMATOCRIT 31.3 % (42.0-52.0); HEMOGLOBIN 10.7 g/dl (14.0-17.9); LYMPHOCYTES # (AUTO) 0.6 X10'3 (1.1-4.8); LYMPHOCYTES % (AUTO) 7.1 % (21-51); MEAN CORPUSCULAR HEMOGLOBIN 32.2 PG (27.0-31.0); MEAN CORPUSCULAR HGB CONC 34.2 g/dL (33.0-36.5); MEAN CORPUSCULAR VOLUME 94.1 FL (78-98); MEAN PLATELET VOLUME 8.4 FL (7.4-10.4); MONOCYTES # (AUTO) 0.9 X10'3 (0-0.9); MONOCYTES % (AUTO) 10.3 % (2-12); NEUTROPHILS # (AUTO) 7.4 X10'3 (1.8-7.7); NEUTROPHILS % (AUTO) 81.1 % (42-75); PLATELET COUNT 297 X10'3 (140-440); RED BLOOD COUNT 3.33 X10'6 (4.70-6.10); RED CELL DISTRIBUTION WIDTH 15.7 % (11.5-14.5); WHITE BLOOD COUNT 9.1 X10'3 (4.5-11.0)
[2021-11-13] MEDS: heparin, porcine 5000 units/ml vial SQ SCH ×2 (08:22→20:08)
[2021-11-13] MEDS: CefTRIAXone 2gm/D5W 50ml BAG 50 ML IV SCH (08:22)
[2021-11-13] MEDS: lactobacillus rhamnosus 10,000 MMU CELLS/CAPSULE PO SCH ×2 (08:22→20:07)
[2021-11-13 08:23] LABS: ALANINE AMINOTRANSFERASE 43 U/L (12-78); ALBUMIN 1.8 G/DL (3.4-5.0); ALBUMIN/GLOBULIN RATIO 0.4 (1.1-1.5); ALKALINE PHOSPHATASE 78 IU/L (46-116); ANION GAP 9 (8-16); ASPARTATE AMINO TRANSFERASE 32 U/L (10-37); BILIRUBIN,TOTAL 0.6 MG/DL (0.1-1.0); BLOOD UREA NITROGEN 20 MG/DL (7-18); BUN/CREATININE RATIO 12.9 (5.4-32.0); CHLORIDE 110 MMOL/L (99-107); CREATININE 1.55 MG/DL (0.60-1.10); GLUCOSE 108 MG/DL (70-104); POTASSIUM 3.9 MMOL/L (3.5-5.1); SODIUM 143 MMOL/L (135-145); TOTAL CARBON DIOXIDE 24.4 MMOL/L (24-32); TOTAL PROTEIN 6.2 G/DL (6.4-8.2); eGFR 43 ML/MIN
[2021-11-13 09:39] LABS: PLATELET ESTIMATE NORMAL; TOTAL CELLS COUNTED 100
[2021-11-13 09:40] LABS: ELLIPTOCYTES FEW
[2021-11-13 11:00] VITALS: BP 107/63
[2021-11-13 15:00] VITALS: BP 118/62
[2021-11-13 18:00] VITALS: BP 113/63
--- NOTE | 2021-11-13 18:08 | NUR ---
Problems reprioritized. Patient report given to Cherelle RN, questions answered & plan of care reviewed with Cherelle RN.
[2021-11-13] MEDS: tamsulosin 0.4mg capsule PO SCH (20:07)
[2021-11-13 22:00] VITALS: BP 105/58
[2021-11-14 02:00] VITALS: BP 109/63
[2021-11-14 06:00] VITALS: BP 106/53
[2021-11-14] MEDS: dextrose 5%-1/2 normal saline 1,000 ML IV SCH ×2 (06:46→13:46)
[2021-11-14] MEDS: lactobacillus rhamnosus 10,000 MMU CELLS/CAPSULE PO SCH ×2 (06:46→20:34)
[2021-11-14] MEDS: levoTHYROXINE 125mcg tablet PO SCH (06:46)
[2021-11-14] MEDS: CefTRIAXone 2gm/D5W 50ml BAG 50 ML IV SCH (06:46)
[2021-11-14] MEDS: heparin, porcine 5000 units/ml vial SQ SCH ×2 (06:46→20:36)
[2021-11-14 07:29] LABS: BASOPHILS # (AUTO) 0.1 X10'3 (0-0.2); BASOPHILS % (AUTO) 0.7 % (0-1); EOSINOPHILS # (AUTO) 0.1 X10'3 (0-0.9); EOSINOPHILS % (AUTO) 0.8 % (0-6); HEMATOCRIT 31.6 % (42.0-52.0); HEMOGLOBIN 10.6 g/dl (14.0-17.9); LYMPHOCYTES # (AUTO) 0.6 X10'3 (1.1-4.8); LYMPHOCYTES % (AUTO) 5.9 % (21-51); MEAN CORPUSCULAR HEMOGLOBIN 31.9 PG (27.0-31.0); MEAN CORPUSCULAR HGB CONC 33.7 g/dL (33.0-36.5); MEAN CORPUSCULAR VOLUME 94.7 FL (78-98); MEAN PLATELET VOLUME 8.4 FL (7.4-10.4); MONOCYTES % (AUTO) 10.2 % (2-12); NEUTROPHILS # (AUTO) 8.4 X10'3 (1.8-7.7); NEUTROPHILS % (AUTO) 82.4 % (42-75); PLATELET COUNT 300 X10'3 (140-440); RED BLOOD COUNT 3.33 X10'6 (4.70-6.10); RED CELL DISTRIBUTION WIDTH 15.7 % (11.5-14.5); WHITE BLOOD COUNT 10.2 X10'3 (4.5-11.0)
--- NOTE | 2021-11-14 07:34 | NUR ---
Change of shift report given to Alvina RN Addendum: 11/14/21 at 2034 by Cherelle Ruffin RN Amended: Links added.
[2021-11-14 07:39] LABS: ALANINE AMINOTRANSFERASE 50 U/L (12-78); ALBUMIN 1.9 G/DL (3.4-5.0); ALBUMIN/GLOBULIN RATIO 0.4 (1.1-1.5); ALKALINE PHOSPHATASE 91 IU/L (46-116); ANION GAP 8 (8-16); ASPARTATE AMINO TRANSFERASE 41 U/L (10-37); BILIRUBIN,TOTAL 0.4 MG/DL (0.1-1.0); BLOOD UREA NITROGEN 22 MG/DL (7-18); BUN/CREATININE RATIO 14.7 (5.4-32.0); CHLORIDE 107 MMOL/L (99-107); GLUCOSE 112 MG/DL (70-104); POTASSIUM 3.8 MMOL/L (3.5-5.1); SODIUM 140 MMOL/L (135-145); TOTAL PROTEIN 6.3 G/DL (6.4-8.2); eGFR 45 ML/MIN
[2021-11-14] MEDS: K and/or MAG REPLACEMENT MC SCH ×4 (08:00→20:00)
[2021-11-14 08:40] LABS: PLATELET ESTIMATE NORMAL; TOTAL CELLS COUNTED 100
[2021-11-14 11:00] VITALS: BP 105/57
[2021-11-14 15:00] VITALS: BP 120/64
--- NOTE | 2021-11-14 15:08 | NUR ---
IV Refusal Pt. IV infiltrated and refused to have another one placed after education of importance. made aware. Madiha Click PCU
[2021-11-14 18:00] VITALS: BP 117/57
--- NOTE | 2021-11-14 18:16 | NUR ---
Problems reprioritized. Patient report given Cherelle RN, questions answered & plan of care reviewed with Cherelle RN.
[2021-11-14] MEDS: tamsulosin 0.4mg capsule PO SCH (20:34)
[2021-11-15] VITALS: BP 108/63
[2021-11-15 04:00] VITALS: BP 110/64
[2021-11-15 06:00] VITALS: BP 108/54
--- NOTE | 2021-11-15 06:00 | NUR ---
Stable throughout the shift. New IV inserted in the left upper arm without incident. He has a good appetite. A younger sister of his called to check on him
--- NOTE | 2021-11-15 06:53 | NUR ---
Change of shift report given to Ernestina RN Addendum: 11/15/21 at 0654 by Cherelle Ruffin RN Amended: Links added.
[2021-11-15] MEDS: levoTHYROXINE 125mcg tablet PO SCH (07:00)
[2021-11-15] MEDS: dextrose 5%-1/2 normal saline 1,000 ML IV SCH ×2 (07:48→18:15)
[2021-11-15] MEDS: K and/or MAG REPLACEMENT MC SCH ×4 (08:00→19:25)
[2021-11-15] MEDS: heparin, porcine 5000 units/ml vial SQ SCH ×2 (08:57→20:43)
[2021-11-15] MEDS: CefTRIAXone 2gm/D5W 50ml BAG 50 ML IV SCH (08:57)
[2021-11-15] MEDS: lactobacillus rhamnosus 10,000 MMU CELLS/CAPSULE PO SCH ×2 (08:57→20:42)
--- NOTE | 2021-11-15 13:19 | NUR ---
Reassessment: Pt continues on Heart healthy diet w/ mostly 100% intake of meals meeting needs. Pt remains A&O x 2 and confused per physical assessment and is independent w/ meals at times. Pt also receiving D5 1/2NS at 100ml/hr providing additional 408kcals per day. LBM 11/14. No change to recommendations at this time. Will continue to monitor. Rec: 1. Liberalize to Regular diet if MD agreeable given no significant cardiac hx in EMR 2. monitor PO trends for additional protein/kcal needs 3. bowel care per rx 4. weekly wts Addendum: 11/15/21 at [address] Amended: Links added.
[2021-11-15 18:00] VITALS: BP 98/63
[2021-11-15] MEDS: tamsulosin 0.4mg capsule PO SCH (20:42)
[2021-11-15 22:00] VITALS: BP 107/53
[2021-11-15] MEDS ORDERED: CefTRIAXone/D5W-Rocephin 1gm 50 ML IV SCH ×2 (23:30→23:34)
[2021-11-16] MEDS: dextrose 5%-1/2 normal saline 1,000 ML IV SCH ×3 (03:48→22:07)
--- NOTE | 2021-11-16 05:04 | NUR ---
On 3 different occasions during the shift he became angry, trying to get out of bed, and resisted staff assistance to get up to use the bedside commode. Staff members alternated to offer him assistance with both male & female staff. He declined all, stating he does not need help and can get up by himself. He was noted to remove the bed alarm clip and try to get out of bed. He eventually quieted down and did get out of bed. Frequent monitoring in effect Addendum: 11/16/21 at 524 by Cherelle Ruffin RN Correction to the above last sentence. He eventually quieted down and did not get out of bed Addendum: 11/16/21 at 05 by Cherelle Ruffin RN He pulled the IV out of his arm and declined having it reinserted Addendum: 11/16/21 at 0638 by Cherelle Ruffin RN He was noted to be pulling at his catheter. I educated him on why he has the catheter and not to pull at it. He again was trying to get out of bed and refusing assistance to go to use the BSC. After some time he settled down and remained in bed
--- NOTE | 2021-11-16 06:38 | NUR ---
Change of shift report given to Ernestina RN Addendum: 11/16/21 at 0638 by Cherelle Ruffin RN Amended: Links added.
[2021-11-16] MEDS: levoTHYROXINE 125mcg tablet PO SCH (07:00)
[2021-11-16] MEDS: heparin, porcine 5000 units/ml vial SQ SCH ×2 (08:00→20:31)
[2021-11-16] MEDS: lactobacillus rhamnosus 10,000 MMU CELLS/CAPSULE PO SCH ×2 (08:00→20:30)
[2021-11-16] MEDS: K and/or MAG REPLACEMENT MC SCH ×4 (08:00→20:00)
[2021-11-16] MEDS: CefTRIAXone/D5W-Rocephin 1gm 50 ML IV SCH (10:00)
[2021-11-16 11:00] VITALS: BP 92/56
[2021-11-16 18:00] VITALS: BP 99/54
[2021-11-16] MEDS: tamsulosin 0.4mg capsule PO SCH (20:30)
[2021-11-16] MEDS: HYDROcodone/acetaminophen 5mg/325mg tablet PO PRN (20:30)
[2021-11-16 22:00] VITALS: BP 97/58
[2021-11-17 02:00] VITALS: BP 114/59
[2021-11-17 06:00] VITALS: BP 113/65
[2021-11-17] MEDS: levoTHYROXINE 125mcg tablet PO SCH (07:00)
[2021-11-17] MEDS: K and/or MAG REPLACEMENT MC SCH ×4 (08:00→20:00)
[2021-11-17] MEDS: lactobacillus rhamnosus 10,000 MMU CELLS/CAPSULE PO SCH ×2 (08:00→20:00)
[2021-11-17] MEDS: heparin, porcine 5000 units/ml vial SQ SCH ×2 (08:00→20:00)
[2021-11-17] MEDS: dextrose 5%-1/2 normal saline 1,000 ML IV SCH ×2 (09:48→19:48)
[2021-11-17] MEDS: CefTRIAXone/D5W-Rocephin 1gm 50 ML IV SCH (10:00)
[2021-11-17 11:00] VITALS: BP 124/65
[2021-11-17] MEDS: tamsulosin 0.4mg capsule PO SCH (21:47)
[2021-11-17] MEDS: HYDROcodone/acetaminophen 5mg/325mg tablet PO PRN (21:48)
[2021-11-17 22:00] VITALS: BP 122/81
[2021-11-18 02:00] VITALS: BP 101/63
[2021-11-18 06:00] VITALS: BP 107/55
[2021-11-18] MEDS: lactobacillus rhamnosus 10,000 MMU CELLS/CAPSULE PO SCH ×2 (07:53→20:55)
[2021-11-18] MEDS: levoTHYROXINE 125mcg tablet PO SCH (07:53)
[2021-11-18] MEDS: heparin, porcine 5000 units/ml vial SQ SCH ×2 (07:54→20:56)
[2021-11-18] MEDS: dextrose 5%-1/2 normal saline 1,000 ML IV SCH (07:58)
[2021-11-18] MEDS: K and/or MAG REPLACEMENT MC SCH ×3 (08:00→20:00)
[2021-11-18 11:00] VITALS: BP 101/57
[2021-11-18] MEDS: CefTRIAXone/D5W-Rocephin 1gm 50 ML IV SCH (11:09)
--- NOTE | 2021-11-18 13:00 | NUR ---
LABS REPORTED COVID 19 TEST POSITIVE.
--- NOTE | 2021-11-18 13:24 | NUR ---
PAGER ID: [phone] MESSAGE: [id number] JESSICA IS COVID POSSITIVE. TIFFANY DARLING
[2021-11-18 15:00] VITALS: BP 98/60
[2021-11-18 18:00] VITALS: BP 101/75
[2021-11-18] MEDS: tamsulosin 0.4mg capsule PO SCH (20:55)
[2021-11-18] MEDS: HYDROcodone/acetaminophen 5mg/325mg tablet PO PRN (20:56)
[2021-11-18 22:00] VITALS: BP 112/78
[2021-11-19 02:00] VITALS: BP 105/70
[2021-11-19 06:00] VITALS: BP 100/60
[2021-11-19] MEDS: levoTHYROXINE 125mcg tablet PO SCH (06:25)
[2021-11-19] MEDS: K and/or MAG REPLACEMENT MC SCH ×2 (08:00→19:31)
[2021-11-19] MEDS: heparin, porcine 5000 units/ml vial SQ SCH ×2 (09:17→19:30)
[2021-11-19] MEDS: lactobacillus rhamnosus 10,000 MMU CELLS/CAPSULE PO SCH ×2 (09:17→19:30)
[2021-11-19] MEDS: CefTRIAXone/D5W-Rocephin 1gm 50 ML IV SCH (09:17)
[2021-11-19 11:00] VITALS: BP 107/65
[2021-11-19 15:00] VITALS: BP 111/69
[2021-11-19 19:30] VITALS: BP 109/65
[2021-11-19] MEDS: dextrose 5%-1/2 normal saline 1,000 ML IV SCH (19:30)
[2021-11-19] MEDS: tamsulosin 0.4mg capsule PO SCH (19:30)
[2021-11-19 21:25] VITALS: BP 102/59
--- NOTE | 2021-11-20 06:09 | NUR ---
Patient in room PCU 3008. I have received report from Lynda CARSON and had the opportunity to ask questions and assume patient care.
--- NOTE | 2021-11-20 06:18 | NUR ---
Problems reprioritized. Patient report given, questions answered & plan of care reviewed with Loyda CARSON. Addendum: 11/20/21 at 0618 by Lynda Angulo RN Amended: Links added.
[2021-11-20 07:00] VITALS: BP 112/64
[2021-11-20 07:48] LABS: BASOPHILS % (AUTO) 0.4 % (0-1); EOSINOPHILS % (AUTO) 0.5 % (0-6); HEMATOCRIT 29.2 % (42.0-52.0); LYMPHOCYTES # (AUTO) 0.6 X10'3 (1.1-4.8); LYMPHOCYTES % (AUTO) 8.6 % (21-51); MEAN CORPUSCULAR HEMOGLOBIN 31.8 PG (27.0-31.0); MEAN CORPUSCULAR HGB CONC 34.3 g/dL (33.0-36.5); MEAN CORPUSCULAR VOLUME 92.7 FL (78-98); MEAN PLATELET VOLUME 7.5 FL (7.4-10.4); MONOCYTES # (AUTO) 0.6 X10'3 (0-0.9); NEUTROPHILS # (AUTO) 5.9 X10'3 (1.8-7.7); NEUTROPHILS % (AUTO) 82.5 % (42-75); PLATELET COUNT 306 X10'3 (140-440); RED BLOOD COUNT 3.15 X10'6 (4.70-6.10); RED CELL DISTRIBUTION WIDTH 14.8 % (11.5-14.5); WHITE BLOOD COUNT 7.1 X10'3 (4.5-11.0)
[2021-11-20] MEDS: K and/or MAG REPLACEMENT MC SCH ×2 (08:00→20:00)
[2021-11-20 08:15] LABS: ALBUMIN 1.8 G/DL (3.4-5.0); ANION GAP 11 (8-16); BLOOD UREA NITROGEN 23 MG/DL (7-18); BUN/CREATININE RATIO 18.3 (5.4-32.0); CALCIUM 7.6 MG/DL (8.5-10.1); CHLORIDE 105 MMOL/L (99-107); CREATININE 1.26 MG/DL (0.60-1.10); GLUCOSE 93 MG/DL (70-104); POTASSIUM 3.4 MMOL/L (3.5-5.1); SODIUM 137 MMOL/L (135-145); TOTAL CARBON DIOXIDE 21.3 MMOL/L (24-32); eGFR 55 ML/MIN
[2021-11-20] MEDS: heparin, porcine 5000 units/ml vial SQ SCH ×2 (08:32→21:12)
[2021-11-20] MEDS: HYDROcodone/acetaminophen 5mg/325mg tablet PO PRN (08:32)
[2021-11-20] MEDS: lactobacillus rhamnosus 10,000 MMU CELLS/CAPSULE PO SCH ×2 (08:32→21:11)
[2021-11-20] MEDS: levoTHYROXINE 125mcg tablet PO SCH (08:32)
[2021-11-20 18:00] VITALS: BP 118/73
--- NOTE | 2021-11-20 19:04 | NUR ---
Patient in room PCU 3008. I have received report from Loyda Haley and had the opportunity to ask questions and assume patient care.
--- NOTE | 2021-11-20 19:29 | NUR ---
Problems reprioritized. Patient report given, questions answered & plan of care reviewed with Nitesh CARSON .
[2021-11-20] MEDS: tamsulosin 0.4mg capsule PO SCH (21:12)
[2021-11-20 22:00] VITALS: BP 110/74
[2021-11-21] MEDS ORDERED: magnesium Cl slow-release 64mg tablet PO PRN (02:35)
[2021-11-21] MEDS ORDERED: potassium Cl 20 mEq SR tablet PO PRN ×2 (02:35)
[2021-11-21] MEDS ORDERED: potassium CL 10mEq/100ml bag 100 ML IV PRN (02:35)
[2021-11-21] MEDS ORDERED: magnesium 2GM in 50ml NS 50 ML IV PRN (02:35)
[2021-11-21] MEDS ORDERED: magnesium 4gm in 100ml NS 100 ML IV PRN (02:35)
[2021-11-21 02:45] VITALS: BP 114/76
[2021-11-21 06:00] VITALS: BP 117/66
[2021-11-21] MEDS: K and/or MAG REPLACEMENT MC SCH ×2 (08:00→20:00)
[2021-11-21] MEDS: heparin, porcine 5000 units/ml vial SQ SCH ×2 (08:48→21:19)
[2021-11-21] MEDS: lactobacillus rhamnosus 10,000 MMU CELLS/CAPSULE PO SCH ×2 (08:48→21:19)
[2021-11-21] MEDS: levoTHYROXINE 125mcg tablet PO SCH (08:49)
[2021-11-21 12:10] VITALS: BP 115/63
--- NOTE | 2021-11-21 13:58 | NUR ---
Reassessment: Pt continues on Heart healthy diet w/ mostly 75-100% intake of meals meeting needs. Pt remains A&O x 2 and confused per physical assessment and is independent w/ meals at times. Pt no longer receiving D5 1/2NS at 100ml/hr. LBM 11/20. No change to recommendations at this time. Will continue to monitor. Rec: 1. Liberalize to Regular diet if MD agreeable given no significant cardiac hx in EMR 2. Monitor need for additional protein 3. bowel care per rx 4. weekly wts Addendum: 11/21/21 at [address] Amended: Links added.
[2021-11-21 15:00] VITALS: BP 106/77
[2021-11-21 18:00] VITALS: BP 112/68
--- NOTE | 2021-11-21 18:50 | NUR ---
REPORT GIVEN BACK TO NATASHA CARSON. ALL QUESTIONS ANSWERED. Addendum: 11/21/21 at 1850 by Marlen Aburto RN, RN REPORT GIVEN TO ZORAIDA BRANCH CORRECTION OF RN
[2021-11-21] MEDS: tamsulosin 0.4mg capsule PO SCH (21:19)
[2021-11-21 22:00] VITALS: BP 117/71
[2021-11-22 02:00] VITALS: BP 128/69
[2021-11-22 06:00] VITALS: BP 103/53
--- NOTE | 2021-11-22 06:30 | NUR ---
Problems reprioritized. Patient report given, questions answered & plan of care reviewed with YAMILETH Hogue.
--- NOTE | 2021-11-22 06:34 | NUR ---
Patient in room PCU 3008. I have received report from Mouna CARSON and had the opportunity to ask questions and assume patient care.
[2021-11-22] MEDS: lactobacillus rhamnosus 10,000 MMU CELLS/CAPSULE PO SCH (07:12)
[2021-11-22] MEDS: levoTHYROXINE 125mcg tablet PO SCH (07:12)
[2021-11-22] MEDS: heparin, porcine 5000 units/ml vial SQ SCH (07:13)
[2021-11-22] MEDS: K and/or MAG REPLACEMENT MC SCH (08:00)
[2021-11-22 11:00] VITALS: BP 116/64
[2021-11-22] MEDS ORDERED: tamsulosin capsule PO (14:03)
[2021-11-22] MEDS ORDERED: LEVO125T8 PO (14:03)
--- NOTE | 2021-11-22 14:17 | NUR ---
called report to [place] CARSON of [facility], all questions answered.
--- NOTE | 2021-11-22 14:29 | NUR ---
iv access discontinued with cannula tip complete and intact
== END 2021-11-22 15:56 | DRG 698 ==
LOC: PCU 3S 08:55
PROVIDERS: ADMIT Family Medicine; ATTEND Family Medicine
PROC: BW211ZZ Computerized Tomography (CT Scan) of Abdomen and Pelvis using Low Osmolar Contrast (ICD-10-PCS; 2021-11-05)
PROC: 0T2BX0Z Change Drainage Device in Bladder, External Approach (ICD-10-PCS; principal; 2021-11-09)
DX: T83.511A Infection and inflammatory reaction due to indwelling urethral catheter, initial encounter (principal); A41.9 Sepsis, unspecified organism; U07.1 COVID-19; G93.41 Metabolic encephalopathy; E43 Unspecified severe protein-calorie malnutrition; N17.9 Acute kidney failure, unspecified; E87.0 Hyperosmolality and hypernatremia; N13.6 Pyonephrosis; R19.7 Diarrhea, unspecified; N32.0 Bladder-neck obstruction; E87.6 Hypokalemia; F03.90 Unspecified dementia, unspecified severity, without behavioral disturbance, psychotic disturbance, mood disturbance, and anxiety; N18.9 Chronic kidney disease, unspecified; Y84.6 Urinary catheterization as the cause of abnormal reaction of the patient, or of later complication, without mention of misadventure at the time of the procedure; N40.1 Benign prostatic hyperplasia with lower urinary tract symptoms; E03.9 Hypothyroidism, unspecified; B96.4 Proteus (mirabilis) (morganii) as the cause of diseases classified elsewhere; K40.90 Unilateral inguinal hernia, without obstruction or gangrene, not specified as recurrent; R77.8 Other specified abnormalities of plasma proteins; Z87.440 Personal history of urinary (tract) infections; Z95.5 Presence of coronary angioplasty implant and graft; Z90.49 Acquired absence of other specified parts of digestive tract; Z68.20 Body mass index [BMI] 20.0-20.9, adult; Y92.89 Other specified places as the place of occurrence of the external cause
CPT/HCPCS: 36415; 71045; 74176; 80048; 80053; 81001; 83605; 83735; 84132; 84145; 84443; 85007; 85025; 87040; 87077; 87081; 87088; 87186; 87324; 87449; 87635; 93005; 97110; 97116; 97161; 97530; G0378; J0696; J1644; J3370; J3475; J3490; J7042